=== PATIENT | female | born 1960 | race Caucasian/White ===

== ENCOUNTER 2016-12-15 01:30 | Emergency (ER) | payer SELFPAY ==
--- NOTE | ~2016-12-15 | ER ---
PATIENT'S NAME: TEENA CEDENO [facility] AGE: 56 Y [address] ROOM: [place] [address] LOCATION: [facility] ADMIT DATE: 12/15/2016 ER/Outpatient Report DISCHARGE DATE: FAMILY PHYSICIAN: Physician, Unknown ATTENDING PHYSICIAN: Rivas Muhammad Admission date and time documented in the medical record. I saw the patient at 0155 hours. CHIEF COMPLAINT: Restless legs bilaterally. HISTORY OF PRESENT ILLNESS: This patient is a 56-year-old female who has had increasing problems with restless legs syndrome over the past 6 weeks. Her feet are tingling and burning sensation with pain discomfort. Worse over the past 5 hours. She presented to the emergency room for evaluation. The patient does have a history of insomnia, depression, and anxiety. No fever, chills, sweats. No coughs, colds, flus. HOME MEDICATIONS: See attached medication list. ALLERGIES: NSAIDS AND TRAZODONE. SOCIAL HISTORY: The patient smokes E-cigarettes. Nondrinker. SIGNIFICANT PAST MEDICAL HISTORY: Depression, insomnia, and dyslipidemia. OPERATIONS: Cholecystectomy, gastric bypass, carpal tunnel repair, and right foot surgery. REVIEW OF SYSTEMS: All systems reviewed by me are negative with the exception of those discussed in the history of present illness. PHYSICAL EXAMINATION: VITAL SIGNS: Temperature 96.8, tympanic; pulse 86, blood pressure 130/67, O2 saturation on room air is 100%. HEAD: Normocephalic. EYES, EARS, NOSE, AND THROAT: Clear. NECK: Negative. PATIENT'S NAME: TEENA CEDENO [facility] AGE: 56 Y [address] ROOM: [place] [address] LOCATION: [facility] ADMIT DATE: 12/15/2016 ER/Outpatient Report DISCHARGE DATE: FAMILY PHYSICIAN: Physician, Unknown ATTENDING PHYSICIAN: Rivas Muhammad LUNGS: Clear. HEART: Regular. ABDOMEN: Soft, nontender. Good bowel tones. EXTREMITIES: No peripheral edema, cyanosis, swelling, redness, deformity. NEUROVASCULAR: Intact. SKIN: Clear. LABORATORY DATA: CMS was normal except for a slight low potassium at 3.4, elevated chloride 113, low anion gap of 9.4, low calcium 8.0. CRP was less than 0.29. White count is 5400, 39 segs, 49 lymphs, 10 monos, 2 eos, one baso, hemoglobin is 10 with hematocrit 31.8, platelet count is 240,000. Sedimentation rate is 21. IMPRESSION: 1. Restless legs syndrome. 2. Depression. 3. Anxiety. PLAN: The patient was given Neurontin 300 mg orally here in the emergency department. Dismissed home. Observation. Activity as tolerated. Warm packs to legs intermittently as needed. Neurontin 300 mg three times a day #30. Follow up with personal physician in 7 to 10 days or sooner if needed. Discussed ensued with the patient concerning my findings and recommendations, she understands. MD NEGRITA POWELL/modl /[id number] d: 12/15/16 0443 t: 12/15/16 1817, OUTPATIENT REPORT
[~2016-12-15 01:30] MED LIST: CATAPRES0.2 MG PO; CATAPRES0.3 MG PO; LEXAPRO20 MG PO; PRILOSEC20 MG PO; SEROQUEL300 MG PO; VALIUM5 MG PO; VISTARIL50 MG PO; WELLBUTRIN XL300 M2 PO
[2016-12-15 02:28] LABS: BASOPHIL # 0.1 K/uL (0.0-0.2); BASOPHIL % 1.1 %; EOSINOPHIL # 0.1 K/uL (0.0-0.5); EOSINOPHIL % 1.9 %; HEMATOCRIT 31.8 % (33.0-46.0); IMMATURE GRANULOCYTE % 0.2 %; LYMPHOCYTE # 2.6 K/uL (0.8-4.0); LYMPHOCYTE % 48.6 %; MCH 24.6 pg (27.0-34.0); MCHC 31.4 gm/dL (32.0-36.5); MCV 78.1 fl (83.0-98.0); MONOCYTE # 0.5 K/uL (0.0-1.0); MONOCYTE % 9.5 %; MPV 10.5 fl (9.4-12.4); NEUTROPHIL # (ANC) 2.1 K/uL (1.8-7.8); NEUTROPHIL % 38.7 %; NRBC % 0 /100WBC (0-0.00); PLATELET COUNT 240 K/uL (150-450); RBC 4.07 M/uL (3.50-5.50); RDW-CV 16.2 % (11.9-14.6); WBC 5.4 K/uL (4.0-11.0)
[2016-12-15 03:01] LABS: ALBUMIN 3.3 gm/dL (3.5-5.0); ALK PHOS 125 IU/L (33-138); ALT 28 IU/L (12-78); ANION GAP 9.4 (10.0-19.0); AST 23 IU/L (10-40); BLOOD UREA NITROGEN 13 mg/dL (6-24); CHLORIDE 113 mMol/L (96-110); CO2 23 mMol/L (22-32); CREATININE 0.9 mg/dL (0.5-1.1); ESTIMATED GFR (MDRD EQUATION) > 60; POTASSIUM 3.4 mMol/L (3.7-5.1); SODIUM 142 mMol/L (135-145); TOTAL BILIRUBIN 0.1 mg/dL (0.0-1.5); TOTAL PROTEIN 6.6 g/dL (6.0-8.4)
== END 2016-12-15 03:34 | disposition disaster alternative care site (69) ==
LOC: GMED 01:30
PROVIDERS: Emergency Medicine
DX: G25.81 Restless legs syndrome (principal); F32.9 Major depressive disorder, single episode, unspecified; F41.9 Anxiety disorder, unspecified; G47.00 Insomnia, unspecified; E78.5 Hyperlipidemia, unspecified; Z90.49 Acquired absence of other specified parts of digestive tract; Z88.6 Allergy status to analgesic agent; Z98.84 Bariatric surgery status; Z98.890 Other specified postprocedural states; Z79.899 Other long term (current) drug therapy; Z88.8 Allergy status to other drugs, medicaments and biological substances

== ENCOUNTER 2016-12-15 19:51 | Emergency (ER) | payer SELFPAY ==
--- NOTE | ~2016-12-15 | ER ---
PATIENT'S NAME: TEENA CEDENO [facility] AGE: 56 Y [address] ROOM: [place] [address] LOCATION: [facility] ADMIT DATE: 12/15/2016 ER/Outpatient Report DISCHARGE DATE: 12/15/2016 FAMILY PHYSICIAN: Jewel Rodriguez MD ATTENDING PHYSICIAN: Rabia Rossi Admission date and time documented in the medical record. I saw the patient at 2050 hours. CHIEF COMPLAINT: Leg discomfort, burning sensation, tremors, restless leg. HISTORY OF PRESENT ILLNESS: The patient is a 56-year-old female, who I saw about 24 hours ago with burning sensation, tingling, and discomfort in her legs bilaterally. Restless legs syndrome. She has some low back pain. No recent fall or trauma. No lightheadedness, dizziness, syncope, or near syncope. Also, had a little bit of tremor in the right arm, but no neck or upper back pain. No headache. I did start her on Neurontin 300 mg 3 times a day. So, she has had 3-4 pills now. She does state that she took them today. HOME MEDICATIONS: See attached medication list. ALLERGIES: NSAIDS AND TRAZODONE. SOCIAL HISTORY: Smokes e-cigarettes, nondrinker. SIGNIFICANT PAST MEDICAL HISTORY: Depression, insomnia, and dyslipidemia. OPERATIONS: Cholecystectomy, gastric bypass, carpal tunnel repair, and right foot surgery. ROS: All systems reviewed by me are negative with exception of those discussed in the history of present illness. PHYSICAL EXAMINATION: VITAL SIGNS: Temperature 98.6, pulse 100, respirations 16, O2 saturation on room air is 96%. HEENT: Negative. LUNGS: Clear. PATIENT'S NAME: TEENA CEDENO [facility] AGE: 56 Y [address] ROOM: [place] [address] LOCATION: [facility] ADMIT DATE: 12/15/2016 ER/Outpatient Report DISCHARGE DATE: 12/15/2016 FAMILY PHYSICIAN: Jewel Rodriguez MD ATTENDING PHYSICIAN: Rabia Rossi HEART: Regular. ABDOMEN: Soft, nontender. Good bowel tones. No distention. BACK: Range of motion of her back is intact. EXTREMITIES: Straight leg raising negative. Range of motion of all of her joints are intact. No peripheral edema, cyanosis, or deformity. NEUROVASCULAR: Intact. IMPRESSION: Restless legs syndrome with some low back pain. PLAN: The patient was given Valium 10 mg, Benadryl 50 mg IM in the emergency room. Discharged home. The patient is to continue home medications of gabapentin 300 mg 3 times a day, heating pad to low back, Flexeril 10 mg 3 times a day. Follow up with personal physician in 1-2 days. RABIA ROSSI MD SDS/modl /[id number] d: 12/16/16 0204 t: 12/16/16 1809, OUTPATIENT REPORT
== END 2016-12-15 21:38 | disposition left against medical advice (07) ==
LOC: GMED 19:51
DX: G25.81 Restless legs syndrome (principal); M54.5 Low back pain; E78.5 Hyperlipidemia, unspecified; F32.9 Major depressive disorder, single episode, unspecified; G47.00 Insomnia, unspecified; Z88.6 Allergy status to analgesic agent; Z88.8 Allergy status to other drugs, medicaments and biological substances; Z90.49 Acquired absence of other specified parts of digestive tract; Z98.890 Other specified postprocedural states; Z98.84 Bariatric surgery status
CPT/HCPCS: J1200; J3360

== ENCOUNTER 2017-01-08 18:01 | Emergency (ER) | payer SELFPAY ==
--- NOTE | ~2017-01-08 | ER ---
PATIENT'S NAME: TEENA CEDENO [facility] AGE: 56 Y [address] ROOM: [place] [address] LOCATION: ED ADMIT DATE: 01/08/2017 ER/Outpatient Report DISCHARGE DATE: 01/08/2017 FAMILY PHYSICIAN: Jewel Rodriguez MD ATTENDING PHYSICIAN: Yohan Eisenberg TIME SEEN: 1815 hours. CHIEF COMPLAINT: Mouth pain. HISTORY OF PRESENT ILLNESS: The patient is a 56-year-old female who said most of her teeth extracted. The patient has a few remaining bottom front which today she started having pain which was not relieved by Tylenol. She is allergic to NSAIDs. She has seen a dentist recently for her dentures and has another appointment in the next week or so. PAST MEDICAL HISTORY: ALLERGIES: SHE HAS SOME INTOLERANCE TO NSAIDS. CURRENT MEDICATIONS: See her copied list. MEDICAL HISTORY: Depression and history of GERD. SOCIAL HISTORY: Smokes e-cigs. No alcohol. Works at [employer]. REVIEW OF SYSTEMS: GENERAL: No fever or chills. HEAD AND EENT. Lower front jaw pain. PHYSICAL EXAMINATION: VITAL SIGNS: Stable. She is afebrile. GENERAL: She is alert and oriented. HEENT: Exam of her mouth shows all her teeth have been removed except for 4 or 5 lower front teeth. She has a fairly significant gingival wasting. She was tender involving the gumline, especially laterally. ASSESSMENT: PATIENT'S NAME: TEENA CEDENO [facility] AGE: 56 Y [address] ROOM: [place] [address] LOCATION: ED ADMIT DATE: 01/08/2017 ER/Outpatient Report DISCHARGE DATE: 01/08/2017 FAMILY PHYSICIAN: Jewel Rodriguez MD ATTENDING PHYSICIAN: Yohan Eisenberg Lower dental pain. PLAN: Amoxicillin 500 t.i.d. [place] for pain over the weekend, 1 or 2 every 4-6 hours. Call her dentist on Tuesday. REEMA NAVARRO FOR MD DEBBIE SMITH/coral /[id number] d: 01/08/17 2108 t: 02/13/17 0453, OUTPATIENT REPORT
== END 2017-01-08 18:27 | disposition disaster alternative care site (69) ==
LOC: GMED 18:01
DX: K08.89 Other specified disorders of teeth and supporting structures (principal); F32.9 Major depressive disorder, single episode, unspecified; K21.9 Gastro-esophageal reflux disease without esophagitis; Z88.8 Allergy status to other drugs, medicaments and biological substances; F17.210 Nicotine dependence, cigarettes, uncomplicated; Z79.899 Other long term (current) drug therapy